=== PATIENT | male | born 1945 | race Caucasian/White ===

== ENCOUNTER 2021-01-02 16:54 | Emergency (ER) | payer MEDICARE ==
[~2021-01-02] VITALS: Ht 172.7 cm; Wt 129.0 kg
[2021-01-02 19:02] LABS: BILIRUBIN,URINE NEG (NEG); CLARITY,URINE CLOUDY; GLUCOSE,URINE NEG (NEG)
[2021-01-02 19:03] LABS: NITRITE,URINE POS (NEG); UROBILINOGEN,URINE 0.2 mg/dL (0.2 mg/dL)
[2021-01-02 19:04] LABS: BACTERIA,URINE FEW /HPF (0-FEW); COLOR,URINE BROWN; RBC,URINE >40 /HPF (0-2)
[2021-01-02 19:05] LABS: SQUAMOUS EPITHELIAL CELL,UR FEW /LPF
[2021-01-02] MEDS ORDERED: IV NORMAL SALINE 1,000ML 1,000 ML IV ONE (19:15)
--- NOTE | 2021-01-02 19:44 | RAD ---
CT abdomen pelvis without contrast. HISTORY: Hematuria, infection, evaluate for kidney stone CT abdomen pelvis was done without contrast. There is atelectasis in both lung bases without other in filtrates. There is no effusion. Patient's had a cholecystectomy. A liver lesion is not identified. S pleen and adrenal glands are normal. There is a 3.1 x 2 cm cystic mass at the tail the pancreas. Post contrast imaging or MRI may be of benefit for further evaluation. There is mild edema at the root of the mesentery which is nonspecific. There is no intrarenal calculus in either kidney. A ureteral calc ulus is not identified. There is no bowel obstruction. Appendix is normal. Prostate is enlarged. Ther e is a Hanks in the bladder. There is no bowel obstruction. There is degenerative and hypertrophic ch oriana in the lumbar spine. There is spinal stenosis at at L3-4 and L4-5. There is spondylolisthesis at L5 or 5. IMPRESSION: 1. No renal or ureteral calculus noted. 2. Cystic mass at the tail of pancreas further evaluation warranted. 3. Enlarged prostate. 4. Degenerative change in the spine with spinal stenosis. 5. Normal appendix. PQRS Compliance Statement: One or more of the following individualized dose reduction techniques were utilized for this examinat ion: 1. Automated exposure control 2. Adjustment of the mA and/or kV according to patient size 3. Use of iterative reconstruction technique Electronically signed by: Doug Cabral MD (01/02/2021 7:42 PM) [facility]
--- NOTE | 2021-01-02 20:01 | PHYS DOC ---
Past History Past Medical History: Diabetes, High Cholesterol, Hypertension, Prostatitis Additional Past Medical Histor: BPH Past Surgical History: Cholecystectomy Smoking: Non-smoker Alcohol Use: None Drug Use: None General Adult EDM: Chief Complaint: OTHER COMPLAINTS HPI: HPI: 75-year-old male with history of BPH requiring chronic indwelling Hanks catheter presents with report of decreased urinary drainage since noon. Patient reports some suprapubic fullness and tenderness. Denies nausea or vomiting. Denies fever or chills. Patient reports Hanks catheter last exchanged several weeks ago at outpatient urologist office. Reports history of urinary retention with Hanks catheter placement. Patient reports urologist trialed removal of the Hanks catheter which was unsuccessful. Therefore repeat Hanks catheter placed by urology. Review of Systems: Review of Systems: Constitutional: Denies fever or chills Eyes: Denies redness or eye pain HENT: Denies nasal congestion or sore throat Respiratory: Denies cough or shortness of breath Cardiovascular: Denies chest pain or palpitations GI: Reports suprapubic abdominal pain; denies nausea or vomiting : Reports decreased urinary frequency and dysuria, Musculoskeletal: Denies back pain or joint pain Integument: Denies rash or skin lesions Neurologic: Denies headache, focal weakness or sensory changes Complete systems were reviewed and found to be within normal limits, except as documented in this note. Current Medications: Current Meds: Current Medications Medications (Trade) Dose Ordered Sig/[facility] Start Time Stop Time Status Last Admin Dose Admin Ceftriaxone Sodium 1 gm/ Sodium Chloride 50 ml @ 100 mls/hr 1X ONCE 01/02/21 19:15 01/02/21 19:44 DC Sodium Chloride 1,000 ml @ 1,000 mls/hr 1X ONCE 01/02/21 19:15 01/02/21 20:14 Allergies: Allergies: Allergies Coded Allergies Type Severity Reaction Last Updated Verified No Known Drug Allergies 01/02/21 No Physical Exam: PE: Constitutional: Well developed, well nourished, no acute distress, non-toxic appearance HENT: Normocephalic, atraumatic Eyes: Conjunctiva normal, no discharge Neck: Normal range of motion, no tenderness, supple Lungs & Thorax: No respiratory distress, equal chest rise and fall Abdomen: Soft, suprapubic tenderness and fullness, guarding with palpation to suprapubic region Skin: Warm, dry, no erythema, no rash : Indwelling Hanks catheter, no penile discharge Back: No tenderness, no CVA tenderness Extremities: No tenderness, ROM intact, no edema Neurologic: Alert and oriented X 3, no focal deficits noted Psychologic: Affect normal, judgment normal Current Patient Data: Labs: Laboratory Tests Test 01/02/21 18:25 Urine Collection Type Unknown Urine Color Brown Urine Clarity Cloudy Urine pH 5.5 Urine Specific Mcpherson >=1.030 Urine Protein 100 mg/dl (NEG-TRACE) Urine Glucose (UA) Neg mg/dL (NEG) Urine Ketones (Stick) Trace mg/dL (NEG) Urine Blood Large (NEG) Urine Nitrite Pos (NEG) Urine Bilirubin Neg (NEG) Urine Urobilinogen Dipstick 0.2 mg/dL (0.2 mg/dL) Urine Leukocyte Esterase Trace (NEG) Urine RBC >40 /HPF (0-2) Urine WBC 5-10 /HPF (0-4) Urine Squamous Epithelial Cells Few /LPF Urine Bacteria Few /HPF (0-FEW) Vital Signs: Vital Signs Date Time Temp Pulse Resp B/P (MAP) Pulse Ox O2 Delivery O2 Flow Rate FiO2 01/02/21 18:24 82 16 148/77 (100) 98 Room Air 01/02/21 17:28 98.2 EKG: EKG: [] Radiology/Procedures: Radiology/Procedures: PROCEDURE: CT ABDOMEN PELVIS WO CONTRAST CT abdomen pelvis without contrast. HISTORY: Hematuria, infection, evaluate for kidney stone CT abdomen pelvis was done without contrast. There is atelectasis in both lung bases without other infiltrates. There is no effusion. Patient's had a cholec ystectomy. A liver lesion is not identified. Spleen and adrenal glands are normal. There is a 3.1 x 2 cm cystic mass at the tail the pancreas. Postcontrast imaging or MRI may be of benefit for further evaluation. There is mild edema at the root of the mesentery which is nonspecific. There is no intrarenal calculus in either kidney. A ureteral calculus is not identified. There is no bowel obstruction. Appendix is normal. Prostate is enlarged. There is a Hanks in the bladder. There is no bowel obstruction. There is degenerative and hypertrophic change in the lumbar spine. There is spinal stenosis at at L3-4 and L4-5. There is spondylolisthesis at L5 or 5. IMPRESSION: 1. No renal or ureteral calculus noted. 2. Cystic mass at the tail of pancreas further evaluation warranted. 3. Enlarged prostate. 4. Degenerative change in the spine with spinal stenosis. 5. Normal appendix. PQRS Compliance Statement: One or more of the following individualized dose reduction techniques were utilized for this examination: 1. Automated exposure control 2. Adjustment of the mA and/or kV according to patient size 3. Use of iterative reconstruction technique Electronically signed by: Doug Cabral MD (01/02/2021 7:42 PM) [facility] Heart Score: C/O Chest Pain: N/A Course & Med Decision Making: Course & Med Decision Making Pertinent Labs and Imaging studies reviewed. (See chart for details) Patient presents with suprapubic fullness and tenderness with indwelling Hanks catheter concerning for acute obstruction. Hanks replaced with interval significant urinary output. UA with signs of infection with gross hematuria. Empiric antibiotic initiated. Other labs obtained and posted to chart. CT abdomen/pelvis without signs of kidney stone or other acute process. A nonspecific pancreatic cystic mass noted. Lipase within normal limits. Patient stable for discharge with outpatient follow-up with PCP/GI. Discussed findings and plan with patient, who acknowledges understanding and agreement. Kontronrussell Disclaimer: Alma Johns Disclaimer: This electronic medical record was generated, in whole or in part, using a voice recognition dictation system. Departure Departure: Impression: Primary Impression: Complicated UTI (urinary tract infection) Additional Impressions: Cystic mass of pancreas Urinary retention Hematuria Qualified Codes: R31.9 - Hematuria, unspecified Disposition: HOME / SELF CARE / HOMELESS Condition: STABLE Referrals: PCP,NO (PCP) Patient Instructions: Catheter-Associated Urinary Tract Infection FAQs - REYES, Hanks Catheter Care, Adult, Hematuria, Adult, Incidental Abdominal Radiological Finding Additional Instructions: Increase fluid hydration. Follow with urology. Give copy of your CT results to your doctor for further evaluation. Scripts Cephalexin (CEPHALEXIN) 500 Mg Tablet 1 TAB PO TID for UTI for 10 Days, #30 TAB Prov: PATY RODRIGEZ DO 01/02/21 PATY RODRIGEZ DO Jan 02, 2021 20:01
[2021-01-02 20:10] LABS: BASO # 0.1 x10^3/uL (0.0-0.2); BASO % 1 % (0-3); EOS # 0.2 x10^3/uL (0.0-0.7); EOS % 3 % (0-3); HEMATOCRIT 40.4 % (39.0-53.0); HEMOGLOBIN 13.8 g/dL (13.0-17.5); LYMPH # 1.4 x10^3/uL (1.0-4.8); LYMPH % 16 % (24-48); MEAN CORPUSCULAR HEMOGLOBIN 30 pg (25-35); MEAN CORPUSCULAR HGB CONC 34 g/dL (31-37); MEAN CORPUSCULAR VOLUME 88 fL (79-100); MONO % 12 % (0-9); NEUT # 5.7 x10^3uL (1.8-7.7); NEUT % 68 % (31-73); PLATELET COUNT 149 x10^3/uL (140-400); RED BLOOD COUNT 4.61 x10^6/uL (4.30-5.70); RED CELL DISTRIBUTION WIDTH 14.2 % (11.5-14.5); WHITE BLOOD COUNT 8.3 x10^3/uL (4.0-11.0)
[2021-01-02] MEDS ORDERED: IV NORMAL SALINE 50ML 50 ML ONE (20:19)
[2021-01-02] MEDS ORDERED: cefTRIAXone SODIUM 1 GM VIAL ONE (20:19)
[2021-01-02 20:35] LABS: ALBUMIN 3.9 g/dL (3.4-5.0); ALBUMIN/GLOBULIN RATIO 1.1 (1.0-1.7); CALCIUM 8.8 mg/dL (8.5-10.1); GFR 73.2; MAGNESIUM 2.2 mg/dL (1.8-2.4); POTASSIUM 5.1 mmol/L (3.5-5.1); TOTAL BILIRUBIN 0.9 mg/dL (0.2-1.0); TOTAL PROTEIN 7.3 g/dL (6.4-8.2)
[2021-01-02] MEDS ORDERED: CEPH500T PO (21:45)
[2021-01-02 22:09] VITALS: BP 152/76
== END 2021-01-02 22:14 | disposition home or self-care (01) ==
LOC: ER 16:54
DX: N39.0 Urinary tract infection, site not specified (principal); R33.9 Retention of urine, unspecified; R31.9 Hematuria, unspecified; K86.2 Cyst of pancreas; E11.9 Type 2 diabetes mellitus without complications; E78.00 Pure hypercholesterolemia, unspecified; I10 Essential (primary) hypertension; Z90.49 Acquired absence of other specified parts of digestive tract
CPT/HCPCS: 36415; 51702; 74176; 80053; 81001; 83690; 83735; 85025; 87086; 96365; 99284; J0696; J7030; 87077

== ENCOUNTER 2021-01-18 21:41 | Emergency (ER) | payer MEDICARE ==
[~2021-01-18] VITALS: Ht 172.7 cm; Wt 127.1 kg
[~2021-01-18 21:41] MED LIST: CEPH500T PO
--- NOTE | 2021-01-18 21:52 | PHYS DOC ---
Past History Past Medical History: Diabetes, High Cholesterol, Hypertension, Prostatitis Additional Past Medical Histor: BPH Past Surgical History: Cholecystectomy Smoking: Non-smoker Alcohol Use: None Drug Use: None General Adult HPI: HPI: ".. I notice my bag .. was not draining urine.. I ve had this frey in for 3 weeks.. I to get a surgery at [facility].. because of my enlarge prostate..." " Maybe.... I did not get enough fluid and I was mowing my yard.." Patient is a 75 year old male who presents with above hx and complaints of catheter does not seem to be draining. Patient's Frey did flush well. After fluids patient was appear to be have a functioning Frey. Patient to keep follo w-up with [facility] urology. Patient return if any concerns. No history of travel. No specific ill contacts. No history of fever or chills Review of Systems: Review of Systems: Constitutional: Denies fever or chills Eyes: Denies change in visual acuity HENT: Denies nasal congestion or sore throat Respiratory: Denies cough or shortness of breath Cardiovascular: Denies chest pain or edema GI: Denies abdominal pain, nausea, vomiting, bloody stools or diarrhea : Denies dysuria . Concern Frey was not working Musculoskeletal: Denies back pain or joint pain Integument: Denies rash Neurologic: Denies headache, focal weakness or sensory changes Endocrine: Denies polyuria or polydipsia Lymphatic: Denies swollen glands Psychiatric: Denies depression or anxiety Family History: Family History: Noncontributory to presentation Current Medications: Current Meds: See nursing for home meds Allergies: Allergies: Allergies Coded Allergies Type Severity Reaction Last Updated Verified No Known Drug Allergies 01/02/21 No Physical Exam: PE: Constitutional: Well developed, well nourished, no acute distress, non-toxic appearance. [] HENT: Normocephalic, atraumatic, bilateral external ears normal, oropharynx moist, no oral exudates, nose normal. [] Eyes: PERRLA, EOMI, conjunctiva normal, no discharge. [] Neck: Normal range of motion, no tenderness, supple, no stridor. [] Cardiovascular:Heart rate regular rhythm, no murmur [] Lungs & Thorax: Bilateral breath sounds clear to auscultation [] Abdomen: Bowel sounds normal, soft, no tenderness, no masses, no pulsatile masses. [] Frey with leg bag. Skin: Warm, dry, no erythema, no rash. [] Back: No tenderness, no CVA tenderness. [] Extremities: No tenderness, no cyanosis, no clubbing, ROM intact, no edema. [] Neurologic: Alert and oriented X 3, normal motor function, normal sensory function, no focal deficits noted. [] Psychologic: Affect normal, judgement normal, mood normal. [] EKG: EKG: [] Radiology/Procedures: Radiology/Procedures: [] Heart Score: C/O Chest Pain: N/A Risk Factors: Risk Factors: DM, Current or recent (<one month) smoker, HTN, HLP, family history of CAD, obesity. Risk Scores: Score 0 - 3: 2.5% MACE over next 6 weeks - Discharge Home Score 4 - 6: 20.3% MACE over next 6 weeks - Admit for Clinical Observation Score 7 - 10: 72.7% MACE over next 6 weeks - Early Invasive Strategies Course & Med Decision Making: Course & Med Decision Making Pertinent Labs and Imaging studies reviewed. (See chart for details) Patient push fluids. Continue to monitor output. Follow-up with [facility] u[facility]. Return if any concerns Impression: 1. Concerns of malfunctioning Frey [] Dragon Disclaimer: Dragon Disclaimer: This electronic medical record was generated, in whole or in part, using a voice recognition dictation system. Departure Departure: Referrals: NON,STAFF (PCP) Dragon Disclaimer This chart was dictated in whole or in part using Voice Recognition software in a busy, high-work load, and often noisy Emergency Department environment. It may contain unintended and wholly unrecognized errors or omissions. URSULA KRAUSE MD Jan 18, 2021 21:52
[2021-01-18 23:25] VITALS: BP 144/91
== END 2021-01-18 23:30 | disposition home or self-care (01) ==
LOC: ER 21:41
DX: T83.098A Other mechanical complication of other urinary catheter, initial encounter (principal); E11.9 Type 2 diabetes mellitus without complications; E78.00 Pure hypercholesterolemia, unspecified; I10 Essential (primary) hypertension
CPT/HCPCS: 99281

== ENCOUNTER → 2021-02-07 | Emergency (ER) | payer MEDICARE ==
[2021-01-18 23:25] VITALS: BP 144/91
[2021-02-07 07:58] LABS: BILIRUBIN,URINE NEG (NEG); CLARITY,URINE HAZY; COLOR,URINE YELLOW; GLUCOSE,URINE NEG (NEG); NITRITE,URINE NEG (NEG); UROBILINOGEN,URINE 0.2 mg/dL (0.2 mg/dL)
[2021-02-07 07:59] LABS: BACTERIA,URINE FEW /HPF (0-FEW); RBC,URINE >40 /HPF (0-2); WBC,URINE >40 /HPF (0-4)
== END | disposition home or self-care (01) ==
LOC: ER 03:33
DX: N42.89 Other specified disorders of prostate (principal)
CPT/HCPCS: 81001; 87086; 99283; 99284

== ENCOUNTER 2021-04-22 13:51 | Emergency (ER) | payer MEDICARE ==
[~2021-04-22] VITALS: Ht 172.7 cm; Wt 125.0 kg
[2021-04-22] MEDS ORDERED: IOHEXOL 300 MG/ML 75 ML VIAL. IV ONE (15:00)
[2021-04-22] MEDS ORDERED: VANCOMYCIN PER PHARMACY MC PRN (15:15)
[2021-04-22] MEDS ORDERED: VANCOMYCIN 2 GM in IV NORMAL SALINE 500ML 500 ML IV ONE (15:30)
[2021-04-22 15:41] LABS: BASO % 1 % (0-3); EOS # 0.2 x10^3/uL (0.0-0.7); EOS % 3 % (0-3); HEMOGLOBIN 14.6 g/dL (13.0-17.5); LYMPH # 0.7 x10^3/uL (1.0-4.8); LYMPH % 8 % (24-48); MEAN CORPUSCULAR HEMOGLOBIN 28 pg (25-35); MEAN CORPUSCULAR HGB CONC 33 g/dL (31-37); MEAN CORPUSCULAR VOLUME 85 fL (79-100); MONO # 1.1 x10^3/uL (0.0-1.1); MONO % 12 % (0-9); NEUT # 6.8 x10^3uL (1.8-7.7); NEUT % 77 % (31-73); PLATELET COUNT 134 x10^3/uL (140-400); RED BLOOD COUNT 5.16 x10^6/uL (4.30-5.70); RED CELL DISTRIBUTION WIDTH 13.9 % (11.5-14.5); WHITE BLOOD COUNT 8.9 x10^3/uL (4.0-11.0)
[2021-04-22 15:54] LABS: CALCIUM 8.6 mg/dL (8.5-10.1); CREATININE 0.8 mg/dL (0.7-1.3); GFR 94.8; POTASSIUM 4.6 mmol/L (3.5-5.1)
--- NOTE | 2021-04-22 15:58 | EKG ---
[address] [address] Test Date: 2021-04-22 Test Time: 15:38:38 Pat Name: MERRILL DENNISON Department: Room: Gender: M Regulatory Affairs Assistant: JOHAN : 1945 Requested By: KADEEM TRONCOSO Order Number: [id number] Reading MD: Jaime Hawk Measurements Intervals [place] Rate: 84 P: -35 UT: 134 QRS: -51 QRSD: 124 T: 44 QT: 366 QTc: 436 Interpretive Statements SINUS RHYTHM LEFT ATRIAL ABNORMALITY ABNORMAL LEFT AXIS DEVIATION LEFT ANTERIOR FASCICULAR BLOCK RIGHT BUNDLE BRANCH BLOCK BIFASCICULAR BLOCK ABNORMAL ECG RI6.02 No previous ECG available for comparison Electronically Signed On 04-22-2021 16:32:37 CDT by Jaime Hawk
[2021-04-22 15:59] LABS: ALBUMIN 3.7 g/dL (3.4-5.0); ALBUMIN/GLOBULIN RATIO 1.2 (1.0-1.7); TOTAL BILIRUBIN 2.1 mg/dL (0.2-1.0); TOTAL PROTEIN 6.9 g/dL (6.4-8.2)
--- NOTE | 2021-04-22 16:00 | RAD ---
EXAM: Chest, single view. HISTORY: Pain. COMPARISON: None. FINDINGS: A frontal view of the chest is obtained. There is bilateral basilar atelectasis or intersti tial infiltrate. There is no infiltrate, pleural effusion or pneumothorax. The heart is normal in siz e. IMPRESSION: Bilateral basilar atelectasis or interstitial infiltrate. Electronically signed by: Odilia Rincon MD (04/22/2021 3:58 PM) [id number]
--- NOTE | 2021-04-22 16:49 | RAD ---
Examination: CT of the abdomen pelvis with IV contrast HISTORY: History of abdominal pain COMPARISON: 01/02/2021 TECHNIQUE: Axial CT images of the abdomen pelvis were performed with IV contrast. Coronal and sagitta l reformats are performed Exposure: One or more of the following individualized dose reduction techniques were utilized for thi s examination: 1. Automated exposure control 2. Adjustment of the mA and/or kV according to patient size 3. Use of iterative reconstruction technique FINDINGS: Mild bibasilar lung atelectasis or infiltrates identified. There is tiny foci of air identified abutt ing the right hemidiaphragm. Diffuse decreased attenuation noted in the liver likely hepatic steatosi s. The spleen, adrenals grossly appears unremarkable There is cystic structure identified in the pancreatic tail measuring 3.2 cm similar to prior exam. The stomach is mildly distended There are multiple dilated small bowel loops identified in the abdomen particularly in the left mid a bdomen with diffuse thickening of the wall of the proximal small bowel loops. There is a transition p oint identified in the right lower quadrant of the abdomen on series 2 image 74. Feces and gas noted in the colon. The large bowel loop is mildly distended throughout. Moderate inflammatory fat stranding identified about the small bowel loops in the left mid abdomen. Diffuse fat stranding identified throughout the anterior abdominal wall with multiple foci of air in the abdominal wall. Bilateral kidneys enhance symmetrically. Moderate aortic atherosclerosis Moderate degenerative changes thoracal lumbar spine IMPRESSION: 1. Multiple dilated small bowel loops identified in the abdomen particularly in the left mid abdomen with diffuse thickening of the wall of the proximal small bowel loops. There is a transition point i dentified in the right lower quadrant of the abdomen on series 2 image 74. Findings could be due to s mall bowel obstruction with enteritis. Ileus is another possibility. 2. Diffuse fat stranding identified throughout the anterior abdominal wall with multiple foci of air in the abdominal wall could be due to recent surgery or cellulitis. Correlate clinically. There is p unctate focus of air identified abutting the right hemidiaphragm, tiny focus of free air is not compl etely excluded. 3. Hepatic steatosis. 4. 3.2 cm cystic structure identified in the pancreatic tail similar to prior exam could be pancreat ic cyst or cystic neoplasm. Follow-up MRI can be considered for better evaluation. Electronically signed by: Rafi Mcguire MD (04/22/2021 4:47 PM) [id number]
--- NOTE | 2021-04-22 17:25 | PHYS DOC ---
Past History Past Medical History: Diabetes, High Cholesterol, Hypertension, Prostatitis Additional Past Medical Histor: BPH Past Surgical History: Cholecystectomy, TURP Additional Past Surgical Histo: hernia repair. Smoking: Non-smoker Alcohol Use: None Drug Use: None General Adult EDM: Chief Complaint: POST-OP PROBLEM HPI: HPI: 75-year-old male past medical history hypertension, diabetes and obesity with history of for umbilical hernia surgeries, most recent was [address] Coffman at , presents to the ED with complaints of " I cannot poop and my belly is pushed out." Last bowel movement was 5 days ago. Is taking narcotic pain medications postoperatively, no antibiotics. Reports clear fluid drainage from wound incision. Today was the first day he cleaned the wound but has not looked at the incision in the mirror. Cannot appreciate any increased warmth to the abdomen. Last meal was a banana around noon. Review of Systems: Review of Systems: Constitutional: Denies fever or chills Eyes: Denies change in visual acuity HENT: Denies nasal congestion or sore throat Respiratory: Denies cough or shortness of breath Cardiovascular: Denies chest pain or edema GI: Denies nausea, vomiting, or diarrhea : Denies dysuria or hematuria Musculoskeletal: Denies back pain or joint pain Integument: Denies no new rash rash or diaphoresis Neurologic: Denies headache, focal weakness or sensory changes Endocrine: Denies polyuria or polydipsia Lymphatic: Denies swollen glands Psychiatric: Denies depression or anxiety Current Medications: Current Meds: Current Medications Medications (Trade) Dose Ordered Sig/Lucia Start Time Stop Time Status Last Admin Dose Admin Iohexol (Omnipaque 300 Mg/ml) 75 ml 1X ONCE 04/22/21 15:00 04/22/21 15:01 DC 04/22/21 15:00 75 ML Vancomycin HCl (Vanco Per Pharmacy) 1 each PRN DAILY PRN 04/22/21 15:15 Vancomycin HCl 2 gm/Sodium Chloride 500 ml @ 250 mls/hr 1X ONCE 04/22/21 15:30 04/22/21 17:29 04/22/21 15:59 250 MLS/HR Allergies: Allergies: Allergies Coded Allergies Type Severity Reaction Last Updated Verified No Known Drug Allergies 01/02/21 No Physical Exam: PE: Constitutional: Well developed, well nourished, no acute distress, non-toxic appearance, hard of hearing HENT: Normocephalic, atraumatic, dry mucous membranes Eyes: EOMI, conjunctiva normal, no discharge. Neck: Normal range of motion, supple, Cardiovascular: S1/2 present, regular rhythm Lungs & Thorax: Speaking in full sentences, bilateral equal chest rise, no tachypnea or increased work of breathing Abdomen: Large, distended abdomen, approximately vertical incision over umbilicus with serous drainage, mottled erythema/red streaks extending approximately 6 cm on each side of incision site, no rigidity, diffuse tenderness Skin: Warm, dry, no erythema, no rash. [] Extremities: No tenderness, no cyanosis, no unilateral lower extremity edema Neurologic: Alert and oriented X 3, normal motor function, normal sensory function, no focal deficits noted. [] Psychologic: Affect normal, judgement normal, mood normal. [] Current Patient Data: Labs: Laboratory Tests Test 04/22/21 15:25 White Blood Count 8.9 x10^3/uL (4.0-11.0) Red Blood Count 5.16 x10^6/uL (4.30-5.70) Hemoglobin 14.6 g/dL (13.0-17.5) Hematocrit 44.0 % (39.0-53.0) Mean Corpuscular Volume 85 fL (79-100) Mean Corpuscular Hemoglobin 28 pg (25-35) Mean Corpuscular Hemoglobin Concent 33 g/dL (31-37) Red Cell Distribution Width 13.9 % (11.5-14.5) Platelet Count 134 x10^3/uL (140-400) L Neutrophils (%) (Auto) 77 % (31-73) H Lymphocytes (%) (Auto) 8 % (24-48) L Monocytes (%) (Auto) 12 % (0-9) H Eosinophils (%) (Auto) 3 % (0-3) Basophils (%) (Auto) 1 % (0-3) Neutrophils # (Auto) 6.8 x10^3uL (1.8-7.7) Lymphocytes # (Auto) 0.7 x10^3/uL (1.0-4.8) L Monocytes # (Auto) 1.1 x10^3/uL (0.0-1.1) Eosinophils # (Auto) 0.2 x10^3/uL (0.0-0.7) Basophils # (Auto) 0.0 x10^3/uL (0.0-0.2) Sodium Level 133 mmol/L (136-145) L Potassium Level 4.6 mmol/L (3.5-5.1) Chloride Level 100 mmol/L (98-107) Carbon Dioxide Level 24 mmol/L (21-32) Anion Gap 9 (6-14) Blood Urea Nitrogen 13 mg/dL (8-26) Creatinine 0.8 mg/dL (0.7-1.3) Estimated GFR (Cockcroft-Gault) 94.8 BUN/Creatinine Ratio 16 (6-20) Glucose Level 184 mg/dL (70-99) H Calcium Level 8.6 mg/dL (8.5-10.1) Total Bilirubin 2.1 mg/dL (0.2-1.0) H Aspartate Amino Transferase (AST) 38 U/L (15-37) H Alanine Aminotransferase (ALT) 28 U/L (16-63) Alkaline Phosphatase 78 U/L (46-116) Creatine Kinase 145 U/L (39-308) Troponin I Quantitative < 0.017 ng/mL (0-0.055) Total Protein 6.9 g/dL (6.4-8.2) Albumin 3.7 g/dL (3.4-5.0) Albumin/Globulin Ratio 1.2 (1.0-1.7) Lipase 97 U/L (73-393) Vital Signs: Vital Signs Date Time Temp Pulse Resp B/P (MAP) Pulse Ox O2 Delivery O2 Flow Rate FiO2 04/22/21 14:20 97.8 85 20 150/79 (102) 96 EKG: EKG: Sinus rhythm 84 bpm, left axis deviation, QRS 124, right bundle branch block, bifascicular block, no T wave inversion, no ST elevation or ST depression, no active chest pain or pressure Radiology/Procedures: Radiology/Procedures: IMAGING REPORT Signed PATIENT: MERRILL DENNISON ACCOUNT: [id number] : 1945 LOCATION: ER AGE: 75 SEX: M EXAM STATUS: REG ER ORD. PHYSICIAN: KADEEM TRONCOSO DO REASON: abd pain postpo hernia surgery 04/22 PROCEDURE: PORTABLE CHEST 1V EXAM: Chest, single view. HISTORY: Pain. COMPARISON: None. FINDINGS: A frontal view of the chest is obtained. There is bilateral basilar atelectasis or interstitial infiltrate. There is no infiltrate, pleural effusion or pneumothorax. The heart is normal in size. IMPRESSION: Bilateral basilar atelectasis or interstitial infiltrate. Electronically signed by: Odilia Presley MD (04/22/2021 3:58 PM) [id number] DICTATED AND SIGNED BY: ODILIA PRESLEY MD DATE: 04/22/21 1557 CC: NON,STAFF; KADEEM TRONCOSO DO ~MTH0 0 IMAGING REPORT Signed PATIENT: MERRILL DENNISON ACCOUNT: [id number] : 1945 LOCATION: ER AGE: 75 SEX: M EXAM STATUS: REG ER ORD. PHYSICIAN: KADEEM TRONCOSO DO REASON: abd pain PROCEDURE: CT ABD PELV W/ IV CONTRST ONLY Examination: CT of the abdomen pelvis with IV contrast HISTORY: History of abdominal pain COMPARISON: 01/02/2021 TECHNIQUE: Axial CT images of the abdomen pelvis were performed with IV contrast. Coronal and sagittal reformats are performed Exposure: One or more of the following individualized dose reduction techniques were utilized for this examination: 1. Automated exposure control 2. Adjustment of the mA and/or kV according to patient size 3. Use of iterative reconstruction technique FINDINGS: Mild bibasilar lung atelectasis or infiltrates identified. There is tiny foci of air identified abutting the right hemidiaphragm. Diffuse decreased attenuation noted in the liver likely hepatic steatosis. The spleen, adrenals grossly appears unremarkable There is cystic structure identified in the pancreatic tail measuring 3.2 cm similar to prior exam. The stomach is mildly distended There are multiple dilated small bowel loops identified in the abdomen particularly in the left mid abdomen with diffuse thickening of the wall of the proximal small bowel loops. There is a transition point identified in the right lower quadrant of the abdomen on series 2 image 74. Feces and gas noted in the colon. The large bowel loop is mildly distended throughout. Moderate inflammatory fat stranding identified about the small bowel loops in the left mid abdomen. Diffuse fat stranding identified throughout the anterior abdominal wall with multiple foci of air in the abdominal wall. Bilateral kidneys enhance symmetrically. Moderate aortic atherosclerosis Moderate degenerative changes thoracal lumbar spine IMPRESSION: 1. Multiple dilated small bowel loops identified in the abdomen particularly in the left mid abdomen with diffuse thickening of the wall of the proximal small bowel loops. There is a transition point identified in the right lower quadrant of the abdomen on series 2 image 74. Findings could be due to small bowel obstruction with enteritis. Ileus is another possibility. 2. Diffuse fat stranding identified throughout the anterior abdominal wall with multiple foci of air in the abdominal wall could be due to recent surgery or cellulitis. Correlate clinically. There is punctate focus of air identified abutting the right hemidiaphragm, tiny focus of free air is not completely excluded. 3. Hepatic steatosis. 4. 3.2 cm cystic structure identified in the pancreatic tail similar to prior exam could be pancreatic cyst or cystic neoplasm. Follow-up MRI can be considered for better evaluation. Electronically signed by: Rafi Mcguire MD (04/22/2021 4:47 PM) [id number] DICTATED AND SIGNED BY: RAFI MCGUIRE MD DATE: 04/22/21 1639 CC: NON,STAFF; [facility] ~MTH0 0 Heart Score: C/O Chest Pain: No Risk Factors: Risk Factors: DM, Current or recent (<one month) smoker, HTN, HLP, family history of CAD, obesity. Risk Scores: Score 0 - 3: 2.5% MACE over next 6 weeks - Discharge Home Score 4 - 6: 20.3% MACE over next 6 weeks - Admit for Clinical Observation Score 7 - 10: 72.7% MACE over next 6 weeks - Early Invasive Strategies Course & Med Decision Making: Course & Med Decision Making Pertinent Labs and Imaging studies reviewed. (See chart for details) Done for ileus versus early small bowel obstruction with no active nausea or vomiting, in the setting of abdominal wall cellulitis. Chest x-ray with basilar atelectasis versus infiltrates. Patient was treated with vancomycin and Rocephin. Patient does not meet SIRS criteria and is hemodynamically stable. Will transfer to accepted by surgeon Dr. Coffman. I have spoken with the patient and/or caregivers. I have explained the patient's condition, diagnosis and treatment plan based on the information available to me at this time. I have answered the patient's and/or caregivers questions and answered any concerns. The patient and/or caregivers have as good an understanding of the patient's diagnosis, condition and treatment plan as can be expected at this point. The patient has been stabilized within the capability of the emergency department. The patient will be transported for further care and management or will be moved to an observation or inpatient service. I have communicated with the staff or medical practitioner taking over this patient's care. Dragon Disclaimer: Dragrussell Disclaimer: This electronic medical record was generated, in whole or in part, using a voice recognition dictation system. Departure Departure: Impression: Primary Impression: Constipation Additional Impressions: Abdominal wall cellulitis Small bowel obstruction Disposition: [facility] (to , accepted by Dr. Loi Coffman) Condition: STABLE Referrals: NON,STAFF (PCP) KADEEM TRONCOSO DO Apr 22, 2021 17:25
[2021-04-22] MEDS ORDERED: IV NORMAL SALINE 1,000ML 1,000 ML IV ONE (17:30)
[2021-04-22] MEDS ORDERED: IV NORMAL SALINE 50ML 50 ML ONE (18:03)
[2021-04-22] MEDS ORDERED: cefTRIAXone SODIUM 1 GM VIAL ONE (18:03)
[2021-04-22 18:58] LABS: BACTERIA,URINE 0 /HPF (0-FEW); BILIRUBIN,URINE NEG (NEG); CLARITY,URINE CLEAR; COLOR,URINE YELLOW; GLUCOSE,URINE NEG (NEG); NITRITE,URINE NEG (NEG); RBC,URINE 0 /HPF (0-2); UROBILINOGEN,URINE 0.2 mg/dL (0.2 mg/dL); WBC,URINE 0 /HPF (0-4)
[2021-04-22 19:30] VITALS: BP 168/82
== END 2021-04-22 20:18 | disposition short-term general hospital (02) ==
LOC: ER 13:51
DX: K91.89 Other postprocedural complications and disorders of digestive system (principal); K59.00 Constipation, unspecified; L03.311 Cellulitis of abdominal wall; K56.609 Unspecified intestinal obstruction, unspecified as to partial versus complete obstruction; E11.9 Type 2 diabetes mellitus without complications; E78.00 Pure hypercholesterolemia, unspecified; I10 Essential (primary) hypertension; E66.9 Obesity, unspecified; Z20.822 Contact with and (suspected) exposure to COVID-19; Z68.41 Body mass index [BMI] 40.0-44.9, adult; Z90.49 Acquired absence of other specified parts of digestive tract; Z98.890 Other specified postprocedural states
CPT/HCPCS: 36415; 71045; 74177; 80053; 81001; 82550; 83690; 84484; 85025; 87426; 93005; 96365; 96366; 96368; 99285; J0696; J3370; J7030; J7040; Q9967